=== PATIENT | female | born 1995 | race Caucasian/White ===

== ENCOUNTER 2021-08-21 11:46 | Inpatient (IN) | payer BC ==
[~2021-08-21] VITALS: Ht 175 cm; Wt 115.9 kg
[2021-08-21] VITALS (10 sets, daily range): BP systolic 98–116; BP diastolic 66–89
[2021-08-21] MEDS ORDERED: NS IV 1000 ML 1,000 ML IV STA ×2 (12:49→15:09)
--- NOTE | 2021-08-21 12:55 | ED Chest Pain ---
General Chief Complaint: Cardiac/General Problems Stated Complaint: HIGH HR, L HAND/FINGERS NUMB Nursing Triage Note: pt reports she woke up at 1100 et her apple watch reported that her heart rate was high. 130s-160s. also c/o numbness in left first three fingers. also c/o sore throat Source: patient Exam Limitations: no limitations History of Present Illness Date Seen by Provider: Aug 21, 2021 Time Seen by Provider: 12:51 Initial Comments Patient is a 26-year-old female presents to ED with fast heart rate and tingling and numbness to her first second and third digit. She woke up around 11 AM. She states she checked her apple watch her heart rate was between 130-160. She started developing numbness and tingling into her left hand. She states she has a mild sore throat but thinks that this is related to her left lower molar. She report a few episodes of diarrhea without any fever, headache, cough short of breath, chest pain, abdominal pain. Denies of any stimulant use. She states she did travel to [place] 2 weeks ago. Patient denies of any control use. Denies of any drug use, alcohol use. No confusion, hallucinations, fever, neck pain headache, dizziness, visual changes. History of fast heart rate in the past but states it typically resolves quickly. Allergies and Home Medications Allergies Coded Allergies: latex (Verified Allergy, Unknown, 08/21/21) Patient Home Medication List Home Medication List Reviewed: Yes No Active Prescriptions or Reported Meds Review of Systems Review of Systems Constitutional: No chills, No diaphoresis, No malaise, No weakness EENTM: No Blurred Vision, No Double Vision, No Eye Pain Respiratory: Denies Cough, Denies Orthopnea, Denies Shortness of Air, Denies SOA With Exertion Cardiovascular: Denies Chest Pain, Denies Edema, Denies Irregular Heart Rate; Palpitations Gastrointestinal: Denies Abdominal Pain; Diarrhea; Denies Nausea, Denies Vomiting Genitourinary: Denies Burning, Denies Discharge Musculoskeletal: No back pain, No joint pain, No joint swelling, No muscle pain, No muscle stiffness Skin: No change in color, No change in hair/nails Psychiatric/Neurological: Denies Anxiety, Denies Depressed, Denies Headache; Numbness, Paresthesia Endocrine: Denies Flushing All Other Systems Reviewed Negative Unless Noted: Yes Past Noncgsr-Guuufg-Qucfrg Hx Past Medical History Last Menstrual Period: Jul 30, 2021 Physical Exam Vital Signs Vital Signs - First Documented 08/21/21 12:42 Temp 37.5 Pulse 141 Resp 16 B/P (MAP) 119/55 (76) Pulse Ox 97 O2 Delivery Room Air Capillary Refill : Less Than 3 Seconds Height, Weight, BMI Height: '" Weight: lbs. oz. kg; 37.00 BMI Method: General Appearance: No Apparent Distress, WD/WN HEENT: PERRL/EOMI, TMs Normal, Normal ENT Inspection, Pharynx Normal Neck: Full Range of Motion, Normal Inspection, Non Tender, Supple Respiratory: Chest Non Tender, Lungs Clear, Normal Breath Sounds, No Accessory Muscle Use Cardiovascular: No Edema, No Gallop, No JVD, No Murmur, Tachycardia Gastrointestinal: Normal Bowel Sounds, No Organomegaly, No Pulsatile Mass Extremity: Normal Capillary Refill, Normal Inspection, Normal Range of Motion Neurologic/Psychiatric: Alert, Oriented x3, No Motor/Sensory Deficits, Normal Mood/Affect Skin: Normal Color, Warm/Dry Progress/Results/Core Measures Results/Orders Lab Results Laboratory Tests Test 08/21/21 13:00 08/21/21 13:07 Range/Units White Blood Count 10.3 4.3-11.0 10^3/uL Red Blood Count 4.76 3.80-5.11 10^6/uL Hemoglobin 14.6 11.5-16.0 g/dL Hematocrit 43 35-52 % Mean Corpuscular Volume 91 80-99 fL Mean Corpuscular Hemoglobin 31 25-34 pg Mean Corpuscular Hemoglobin Concent 34 32-36 g/dL Red Cell Distribution Width 12.1 10.0-14.5 % Platelet Count 218 130-400 10^3/uL Mean Platelet Volume 10.6 9.0-12.2 fL Immature Granulocyte % (Auto) 0 % Neutrophils (%) (Auto) 69 42-75 % Lymphocytes (%) (Auto) 16 12-44 % Monocytes (%) (Auto) 14 H 0-12 % Eosinophils (%) (Auto) 0 0-10 % Basophils (%) (Auto) 1 0-10 % Neutrophils # (Auto) 7.1 1.8-7.8 10^3/uL Lymphocytes # (Auto) 1.7 1.0-4.0 10^3/uL Monocytes # (Auto) 1.4 H 0.0-1.0 10^3/uL Eosinophils # (Auto) 0.0 0.0-0.3 10^3/uL Basophils # (Auto) 0.1 0.0-0.1 10^3/uL Immature Granulocyte # (Auto) 0.0 0.0-0.1 10^3/uL Prothrombin Time 13.4 12.2-14.7 SEC INR Comment 1.0 0.8-1.4 Activated Partial Thromboplast Time 32 24-35 SEC D-Dimer 0.95 H 0.00-0.49 UG/ML Sodium Level 138 135-145 MMOL/L Potassium Level 3.7 3.6-5.0 MMOL/L Chloride Level 104 98-107 MMOL/L Carbon Dioxide Level 22 21-32 MMOL/L Anion Gap 12 5-14 MMOL/L Blood Urea Nitrogen 4 L 7-18 MG/DL Creatinine 0.85 0.60-1.30 MG/DL Estimat Glomerular Filtration Rate 97 BUN/Creatinine Ratio 5 Glucose Level 94 70-105 MG/DL Calcium Level 9.2 8.5-10.1 MG/DL Corrected Calcium 9.0 8.5-10.1 MG/DL Magnesium Level 1.8 1.6-2.4 MG/DL Total Bilirubin 0.4 0.1-1.0 MG/DL Aspartate Amino Transf (AST/SGOT) 24 5-34 U/L Alanine Aminotransferase (ALT/SGPT) 31 0-55 U/L Alkaline Phosphatase 86 40-136 U/L Myoglobin 20.7 10.0-92.0 NG/ML Troponin I < 0.028 <0.028 NG/ML B-Type Natriuretic Peptide 20.0 <100.0 PG/ML Total Protein 7.6 6.4-8.2 GM/DL Albumin 4.3 3.2-4.5 GM/DL Lipase 16 8-78 U/L Thyroid Stimulating Hormone (TSH) 1.67 0.35-4.94 UIU/ML Urine Color YELLOW Urine Clarity SL CLOUDY Urine pH 6.0 5-9 Urine Specific [place] 1.025 H 1.016-1.022 Urine Protein NEGATIVE NEGATIVE Urine Glucose (UA) NEGATIVE NEGATIVE Urine Ketones NEGATIVE NEGATIVE Urine Nitrite NEGATIVE NEGATIVE Urine Bilirubin NEGATIVE NEGATIVE Urine Urobilinogen 1.0 < = 1.0 MG/DL Urine Leukocyte Esterase 3+ H NEGATIVE Urine RBC (Auto) NEGATIVE NEGATIVE Urine RBC NONE /HPF Urine WBC 5-10 H /HPF Urine Squamous Epithelial Cells 5-10 /HPF Urine Renal Epithelial Cells NONE /HPF Urine Crystals NONE /LPF Urine Bacteria FEW H /HPF Urine Casts NONE /LPF Urine Mucus SMALL H /LPF Urine Culture Indicated YES Urine Test NEGATIVE NEGATIVE Urine Opiates Screen NEGATIVE NEGATIVE Urine Oxycodone Screen NEGATIVE NEGATIVE Urine Methadone Screen NEGATIVE NEGATIVE Urine Propoxyphene Screen NEGATIVE NEGATIVE Urine Barbiturates Screen NEGATIVE NEGATIVE Ur Tricyclic Antidepressants Screen NEGATIVE NEGATIVE Urine Phencyclidine Screen NEGATIVE NEGATIVE Urine Amphetamines Screen NEGATIVE NEGATIVE Urine Methamphetamines Screen NEGATIVE NEGATIVE Urine Benzodiazepines Screen NEGATIVE NEGATIVE Urine Cocaine Screen NEGATIVE NEGATIVE Urine Cannabinoids Screen NEGATIVE NEGATIVE My Orders Orders - SARAH ISLAS PA Cbc With Automated Diff (08/21/21 12:47) Magnesium (08/21/21 12:47) Chest 1 View, Ap/Pa Only (08/21/21 12:47) Ekg Tracing (08/21/21 12:47) Comprehensive Metabolic Panel (08/21/21 12:47) Myoglobin Serum (08/21/21 12:47) Protime With Inr (08/21/21 12:47) Partial Thromboplastin Time (08/21/21 12:47) Monitor-Rhythm Ecg Trace Only (08/21/21 12:47) Lipid Panel (08/22/21 06:00) Ed Iv/Invasive Line Start (08/21/21 12:47) Lipase (08/21/21 12:47) Bnp Willis (08/21/21 12:47) Fibrin Degradation Products (08/21/21 12:47) Troponin I Willis (08/21/21 12:47) Aspirin Chewable Tablet (Baby Aspirin Ch (08/21/21 13:00) Thyroid Stimulating Hormone (08/21/21 12:47) Ua Culture If Indicated (08/21/21 12:47) Hcg,Qualitative Urine (08/21/21 12:47) Ns Iv 1000 Ml (Sodium Chloride 0.9%) (08/21/21 12:49) Urine Culture (08/21/21 13:07) Ct Angio Chest W (08/21/21 13:25) Iohexol Injection (Omnipaque 350 Mg/Ml 1 (08/21/21 13:45) Received Contrast (Hold Metformin- Contr (08/21/21 13:45) Sodium Chloride Flush (Catheter Flush Sy (08/21/21 13:45) Ns (Ivpb) (Sodium Chloride 0.9% Ivpb Bag (08/21/21 13:45) Drug Screen Stat (Urine) (08/21/21 15:03) Ns Iv 1000 Ml (Sodium Chloride 0.9%) (08/21/21 15:09) Rapid Strep A Screen (08/21/21 15:09) Covid 19 Inhouse Test (08/21/21 15:09) Influenza A And B By Pcr (08/21/21 15:09) Ceftriaxone 1 Gm Pre-Mix (Rocephin 1 Gm (08/21/21 15:09) Ed Admission (Communication) (08/21/21 15:11) Medications Given in ED Current Medications Medications Dose Ordered Sig/Odalis Route Start Time Stop Time Status Last Admin Dose Admin Aspirin 324 mg ONCE ONCE PO 08/21/21 13:00 08/21/21 13:01 DC 08/21/21 13:09 324 MG Iohexol 100 ml ONCE ONCE IV 08/21/21 13:45 08/21/21 13:46 DC 08/21/21 14:32 100 ML Sodium Chloride 10 ml NEEDED PRN IV 08/21/21 13:45 08/21/21 14:32 10 ML Sodium Chloride 100 ml ONCE ONCE IV 08/21/21 13:45 08/21/21 13:46 DC 08/21/21 14:32 80 ML Vital Signs/I&O 08/21/21 12:42 Temp 37.5 Pulse 141 Resp 16 B/P (MAP) 119/55 (76) Pulse Ox 97 O2 Delivery Room Air Blood Pressure Mean: 76 Comment Sinus tachycardia, 146 bpm, QRS duration 78 MS, QTc 410 MS. Departure Communication (Admissions) Time/Spoke to Admitting Phy: 15:15 Patient cardiac work-up unremarkable. Patient remained tachycardic around 110 to 112 bpm. She still having some numbness and tingling of her hand. Did discuss patient with Dr. Miranda cardiology recommend admission for further evaluation of the tachycardia. Patient will be admitted to Dr. Carrillo. Recommend another liter fluid. Swab for COVID influenza and strep. She has no meningeal signs, headache, vomiting, current chest pain or shortness of breath. Lab work was reassuring. Normal TSH. Drug screen pending. She does drink some caffeine and energy drinks but denies of any excessive consumption over the past 24 hours. Denies of any drug use or alcohol use currently. Patient will be admitted for observation at stepdown. Recommend Rocephin for possible UTI Admission for unexplained tachycardia. Impression Primary Impression: Sinus tachycardia Additional Impression: UTI (urinary tract infection) Disposition: ADMITTED INPATIENT Condition: Stable Admissions Decision to Admit Reason: Admit from ER (General) Decision to Admit/Date: Aug 21, 2021 Time/Decision to Admit Time: 15:15 Departure-Patient Inst. Referrals: NO,LOCAL PHYSICIAN (PCP/Family) Primary Care Physician Scripts No Active Prescriptions or Reported Meds SARAH ISLAS Aug 21, 2021 12:55
[2021-08-21] MEDS ORDERED: ASPIRIN 81 MG CHEW (CHILDREN'S ASA) PO ONE (13:00)
--- NOTE | 2021-08-21 13:08 | Diagnostic Imaging Report ---
INDICATION: Chest pain. COMPARISON: None available. TECHNIQUE: Single radiograph of the chest dated 08/21/2021. FINDINGS: The cardiac silhouette is within normal limits in size. No significant pulmonary vascular congestion. The lungs are clear of focal pulmonary opacity. No pleural effusion. No pneumothorax. No acute osseous abnormality. IMPRESSION: No acute cardiopulmonary abnormality. Dictated by: Dictated on workstation # [id number]
[2021-08-21 13:09] LABS: BASOPHILS # (AUTO) 0.1 10^3/uL (0.0-0.1); BASOPHILS % (AUTO) 1 % (0-10); EOSINOPHILS % (AUTO) 0 % (0-10); HEMATOCRIT 43 % (35-52); HEMOGLOBIN 14.6 g/dL (11.5-16.0); LYMPHOCYTES # (AUTO) 1.7 10^3/uL (1.0-4.0); LYMPHOCYTES % (AUTO) 16 % (12-44); MEAN CORPUSCULAR HEMOGLOBIN 31 pg (25-34); MEAN CORPUSCULAR HGB CONC 34 g/dL (32-36); MEAN CORPUSCULAR VOLUME 91 fL (80-99); MEAN PLATELET VOLUME 10.6 fL (9.0-12.2); MONOCYTES # (AUTO) 1.4 10^3/uL (0.0-1.0); MONOCYTES % (AUTO) 14 % (0-12); NEUTROPHILS # (AUTO) 7.1 10^3/uL (1.8-7.8); NEUTROPHILS % (AUTO) 69 % (42-75); PLATELET COUNT 218 10^3/uL (130-400); WHITE BLOOD COUNT 10.3 10^3/uL (4.3-11.0)
[2021-08-21 13:12] LABS: BILIRUBIN,URINE NEGATIVE (NEGATIVE); CLARITY,URINE SL CLOUDY; COLOR,URINE YELLOW; GLUCOSE, URINE (UA) NEGATIVE (NEGATIVE); KETONES,URINE NEGATIVE (NEGATIVE); LEUKOCYTE ESTERASE ,URINE 3+ (NEGATIVE); NITRITE,URINE NEGATIVE (NEGATIVE); PROTEIN,URINE NEGATIVE (NEGATIVE)
[2021-08-21 13:20] LABS: BACTERIA,URINE FEW /HPF
[2021-08-21 13:21] LABS: ALBUMIN 4.3 GM/DL (3.2-4.5); POTASSIUM 3.7 MMOL/L (3.6-5.0); PROTHROMBIN TIME PATIENT 13.4 SEC (12.2-14.7)
[2021-08-21 13:22] LABS: CALCIUM 9.2 MG/DL (8.5-10.1)
[2021-08-21 13:23] LABS: TOTAL PROTEIN 7.6 GM/DL (6.4-8.2)
[2021-08-21 13:25] LABS: BILIRUBIN,TOTAL 0.4 MG/DL (0.1-1.0)
[2021-08-21 13:27] LABS: CREATININE SERUM 0.85 MG/DL (0.60-1.30)
[2021-08-21 13:30] LABS: MAGNESIUM 1.8 MG/DL (1.6-2.4)
[2021-08-21] MEDS ORDERED: IOHEXOL 350 MG/ML 100 ML (OMNIPAQUE 350) VIAL IV ONE (13:45)
[2021-08-21] MEDS ORDERED: NS 100 ML (IVPB) BAG IV ONE (13:45)
[2021-08-21] MEDS ORDERED: HOLD METFORMIN - RECEIVED CONTRAST 20 ML VIAL IV SCH (13:45)
[2021-08-21] MEDS ORDERED: CATHETER FLUSH 10 ML SYR IV PRN (13:45)
--- NOTE | 2021-08-21 14:50 | Diagnostic Imaging Report ---
PROCEDURE: CT angiography of the chest with contrast. TECHNIQUE: Multiple contiguous axial images were obtained through the chest after uneventful bolus administration of intravenous contrast. 3D reconstructed CTA MIP acquisitions were also performed. Auto Exposure Controls were utilized during the CT exam to meet ALARA standards for radiation dose reduction. INDICATION: Elevated heart rate as well as numbness in left fingers. COMPARISON: No prior studies are available for comparison. FINDINGS: Evaluation of the pulmonary arterial system is without evidence of thromboembolism. No filling defects are seen within central, lobar, or segmental branches. Thoracic aorta is normal in caliber. There is no dissection. There is no pericardial or pleural fluid identified. No pulmonary infiltrates, nodules, or masses are detected. Upper abdomen is unremarkable. IMPRESSION: Unremarkable CT angiogram of the chest. There is no evidence of pulmonary embolism or acute aortic disease. Dictated by: Dictated on workstation # [id number]
[2021-08-21] MEDS ORDERED: cefTRIAXone 1 GM PRE-MIX 50 ML IV STA (15:09)
[2021-08-21] MEDS ORDERED: NS IV 1000 ML 1,000 ML IV SCH (15:15)
[2021-08-21 15:19] LABS: AMPHETAMINE SCREEN, URINE NEGATIVE (NEGATIVE); BENZODIAZEPINES SCREEN URINE NEGATIVE (NEGATIVE); CANNABINOID SCREEN, URINE NEGATIVE (NEGATIVE); COCAINE SCREEN URINE NEGATIVE (NEGATIVE); METHAMPHETAMINE SCREEN URINE S NEGATIVE (NEGATIVE); OPIATE SCREEN URINE NEGATIVE (NEGATIVE)
[2021-08-21 15:20] LABS: BARBITURATE SCREEN URINE NEGATIVE (NEGATIVE); METHADONE STAT NEGATIVE (NEGATIVE); OXYCODONE STAT NEGATIVE (NEGATIVE); PROPOXYPHENE STAT NEGATIVE (NEGATIVE); TRICYCLIC ANTIDEPRESSANTS SCRE NEGATIVE (NEGATIVE)
[2021-08-21] MEDS ORDERED: ONDANSETRON 4 MG/2 ML (SDV) Z0FRAN IV PRN (16:15)
[2021-08-21] MEDS ORDERED: ACETAMINOPHEN 325 MG TABLET PO PRN (16:15)
[2021-08-21] MEDS ORDERED: ANTACID SUSP 30 ML UDC (MYLANTA) PO PRN (16:15)
[2021-08-21] MEDS ORDERED: PATIENT MAY USE OWN MEDS, ALL PO SCH (16:15)
[2021-08-21] MEDS ORDERED: polyethylene glycoL POWDER 17 GM (MIRALAX) PACK PO PRN (16:15)
[2021-08-21] MEDS ORDERED: MELATONIN 3 MG TABLET PO PRN (16:15)
[2021-08-21] MEDS ORDERED: ONDANSETRON 4 MG (ZOFRAN) ORAL DISSOLVE TAB PO PRN (16:15)
[2021-08-21] MEDS ORDERED: diphenhydrAMINE 25 MG TAB (BENADRYL) PO PRN (16:15)
--- NOTE | 2021-08-21 16:18 | Consultation-Cardiology ---
HPI-Cardiology Cardiology Consultation: Date of Consultation 08/21/21 Time Seen by a Provider: 16:10 Date of Admission 08-21-21 Attending Physician Margaret Carrillo MD Admitting Physician No,Local Physician Consulting Physician Jean Miranda MD HPI: Chief Complaint: Tachycardia Ms. Price is a 26 yr old female being admitted to [facility] from the ED. She reports she woke up this morning and was in bed watching videos on her phone. She reports her Apple watch alerted her to a high HR of 140. She reports she did not feel her HR was elevated. She reports she got up and went to the BR at which time her HR went up to 160 beats. She reports she decided to come to the ED. She reports walking from her house outside to the car her HR went up to 180 bpm. She denies any palpitations, dizziness, SOB, syncope or near syncope. No c/o LE swelling. She reports she has had some diarrhea a few days ago. She reports she feels as though "she's coming down with something" d/t a co-worker being ill recently. No report of fever or chills. No report of cough. She denies any street drug usage. Only occ ETOH usage (none recently). She quit smoking 2 yrs ago. She takes no medications. Review of Systems-Cardiology Review of Systems Constitutional: No chills, No fever; lightheadedness (occ, with position ayala ges); No malaise Eyes: No tunnel vision Ears/Nose/Throat: No epistaxis, No recent hearing loss Respiratory: As described under HPI Cardiovascular: As described under HPI Gastrointestinal: As described under HPI Genitourinary: No dysuria, No hematuria Musculoskeletal: joint pain (chronic right knee pain) Skin: No rash on exposed areas, No ulcerations on exposed areas Psychiatric/Neurological: anxiety, depression; No seizure, No focal weakness Hematologic: No bleeding abnormalities All Other Systems Reviewed Negative Unless Noted: Yes EGY-Vjyafp-Ovlmtt Hx Patient Social History Have you traveled recently?: No Where was recent travel?: [place] 2 weeks ago Alcohol Use?: No Pt feels they are or have been: No Past Medical History PMH As described under Assessment. Family Medical History Family Medical History: She does not report any family h/o CAD or SCD. Allergies and Home Medications Allergies Coded Allergies: latex (Verified Allergy, Unknown, 08/21/21) Patient Home Medication List No Active Prescriptions or Reported Meds Physical Exam-Cardiology Physical Exam Vital Signs/I&O 08/22/21 08/22/21 08/22/21 08/22/21 00:00 00:47 04:00 07:00 Pulse 104 110 108 87 Resp 31 24 B/P (MAP) 122/64 (83) 100/70 (80) Pulse Ox 96 94 O2 Delivery Room Air Room Air 08/22/21 08/22/21 08:25 08:30 Pulse 102 Resp 20 B/P (MAP) 102/69 (80) Pulse Ox 98 O2 Delivery Room Air Room Air 08/22/21 00:00 Intake Total 1580 ml Balance 1580 ml Capillary Refill : Less Than 3 Seconds Constitutional: AAO x 3, well-developed, well-nourished HEENT: PERRL, hearing is well preserved, oral hygience is good Neck: No carotid bruit; carotid pulses are 2 + bilaterally Respiratory: No accessory muscle use, No respiratory distress; chest expansion is symmetric, chest is bilaterally symmetric, lungs clear to auscultation Cardiovascular: tachycardia (105) Gastrointestinal: No tender; soft, round, audible bowel sounds Extremities: no lower extremity edema bilateral Neurologic/Psychiatric: grossly intact (moves all extremities) Skin: No rash on exposed areas, No ulcerations on exposed areas Data Review Labs Laboratory Tests 08/21/21 13:00: White Blood Count 10.3, Red Blood Count 4.76, Hemoglobin 14.6, Hematocrit 43, Mean Corpuscular Volume 91, Mean Corpuscular Hemoglobin 31, Mean Corpuscular Hemoglobin Concent 34, Red Cell Distribution Width 12.1, Platelet Count 218, Mean Platelet Volume 10.6, Immature Granulocyte % (Auto) 0, Neutrophils (%) (Auto) 69, Lymphocytes (%) (Auto) 16, Monocytes (%) (Auto) 14H, Eosinophils (%) (Auto) 0, Basophils (%) (Auto) 1, Neutrophils # (Auto) 7.1, Lymphocytes # (Auto) 1.7, Monocytes # (Auto) 1.4H, Eosinophils # (Auto) 0.0, Basophils # (Auto) 0.1, Immature Granulocyte # (Auto) 0.0, Prothrombin Time 13.4, INR Comment 1.0, Activated Partial Thromboplast Time 32, D-Dimer 0.95H, Sodium Level 138, Potassium Level 3.7, Chloride Level 104, Carbon Dioxide Level 22, Anion Gap 12, Blood Urea Nitrogen 4L, Creatinine 0.85, Estimat Glomerular Filtration Rate 97, BUN/Creatinine Ratio 5, Glucose Level 94, Calcium Level 9.2, Corrected Calcium 9.0, Magnesium Level 1.8, Total Bilirubin 0.4, Aspartate Amino Transf (AST/SGOT) 24, Alanine Aminotransferase (ALT/SGPT) 31, Alkaline Phosphatase 86, Myoglobin 20.7, Troponin I < 0.028, B-Type Natriuretic Peptide 20.0, Total Protein 7.6, Albumin 4.3, Lipase 16, Thyroid Stimulating Hormone (TSH) 1.67 08/21/21 13:07: Urine Color YELLOW, Urine Clarity SL CLOUDY, Urine pH 6.0, Urine Specific [place] 1.025H, Urine Protein NEGATIVE, Urine Glucose (UA) NEGATIVE, Urine Ketones NEGATIVE, Urine Nitrite NEGATIVE, Urine Bilirubin NEGATIVE, Urine Urobilinogen 1.0, Urine Leukocyte Esterase 3+H, Urine RBC (Auto) NEGATIVE, Urine RBC NONE, Urine WBC 5-10H, Urine Squamous Epithelial Cells 5-10, Urine Renal Epithelial Cells NONE, Urine Crystals NONE, Urine Bacteria FEWH, Urine Casts NONE, Urine Mucus SMALLH, Urine Culture Indicated YES, Urine Test NEGATIVE, Urine Opiates Screen NEGATIVE, Urine Oxycodone Screen NEGATIVE, Urine Methadone Screen NEGATIVE, Urine Propoxyphene Screen NEGATIVE, Urine Barbiturates Screen NEGATIVE, Ur Tricyclic Antidepressants Screen NEGATIVE, Urine Phencyclidine Screen NEGATIVE, Urine Amphetamines Screen NEGATIVE, Urine Methamphetamines Screen NEGATIVE, Urine Benzodiazepines Screen NEGATIVE, Urine Cocaine Screen NEGATIVE, Urine Cannabinoids Screen NEGATIVE 08/21/21 15:23: Influenza Type A (RT-PCR) Not Detected, Influenza Type B (RT-PCR) Not Detected, SARS-CoV-2 RNA (RT-PCR) Not Detected 08/22/21 05:00: Sodium Level 137, Potassium Level 3.4L, Chloride Level 108H, Carbon Dioxide Level 17L, Anion Gap 12, Blood Urea Nitrogen 5L, Creatinine 0.72, Estimat Glomerular Filtration Rate 119, BUN/Creatinine Ratio 7, Glucose Level 95, Calcium Level 8.3L, Triglycerides Level 56, Cholesterol Level 156, LDL Cholesterol Direct 110, VLDL Cholesterol 11, HDL Cholesterol 35L Radiology NAME: WIL PRICE REC#: [id number] PT STATUS: REG ER : 1995 PHYSICIAN: SARAH ISLAS ADMIT DATE: 08/21/21/ER Signed Date of Exam:08/21/21 CHEST 1 VIEW, AP/PA ONLY INDICATION: Chest pain. COMPARISON: None available. TECHNIQUE: Single radiograph of the chest dated 08/21/2021. FINDINGS: The cardiac silhouette is within normal limits in size. No significant pulmonary vascular congestion. The lungs are clear of focal pulmonary opacity. No pleural effusion. No pneumothorax. No acute osseous abnormality. IMPRESSION: No acute cardiopulmonary abnormality. Dictated by: Dictated on workstation # [id number] Dict: 08/21/21 1305 Trans: 08/21/21 1401 [id number] Interpreted by: CARMEN HOFF MD Electronically signed by: CARMEN HOFF MD 08/21/21 1401 NAME: WIL PRICE [facility] REC#: [id number] PT STATUS: ADM IN : 1995 PHYSICIAN: SARAH ISLAS ADMIT DATE: 08/21/21/CSD Signed Date of Exam:08/21/21 CT ANGIO CHEST W PROCEDURE: CT angiography of the chest with contrast. TECHNIQUE: Multiple contiguous axial images were obtained through the chest after uneventful bolus administration of intravenous contrast. 3D reconstructed CTA MIP acquisitions were also performed. Auto Exposure Controls were utilized during the CT exam to meet ALARA standards for radiation dose reduction. INDICATION: Elevated heart rate as well as numbness in left fingers. COMPARISON: No prior studies are available for comparison. FINDINGS: Evaluation of the pulmonary arterial system is without evidence of thromboembolism. No filling defects are seen within central, lobar, or segmental branches. Thoracic aorta is normal in caliber. There is no dissection. There is no pericardial or pleural fluid identified. No pulmonary infiltrates, nodules, or masses are detected. Upper abdomen is unremarkable. IMPRESSION: Unremarkable CT angiogram of the chest. There is no evidence of pulmonary embolism or acute aortic disease. Dictated by: Dictated on workstation # [id number] Dict: 08/21/21 1439 Trans: 08/21/21 1557 [id number] Interpreted by: TINO DAVIS MD Electronically signed by: TINO DAVIS MD 08/21/21 1557 A/P-Cardiology Assessment/Admission Diagnosis Sinus tachycardia - undetermined etiology - TSH WNL on 08-21-21 UTI - management per medical services Anxiety/Depression Previous h/o tobaccoism - quit 2 yrs ago Urine test neg on 08-21-21 Discussion and Recomendations Sinus tachycardia - improving - undetermined etiology - possible secondary to infection d/t UTI - continue on tele - continue IVF - Echocardiogram to eval structure and function Monitor lab closely Replace electrolytes as indicated Management of UTI is with medical services Further recs will be based on her hospital course We would like to thank medical services for this consult JAIME EARL Aug 21, 2021 16:18
[2021-08-21] MEDS: NS IV 1000 ML 1,000 ML IV SCH (16:31)
--- NOTE | 2021-08-21 17:16 | Consultation-Cardiology ---
HPI-Cardiology Cardiology Consultation: Date of Consultation 08/21/21 Time Seen by a Provider: 17:00 Date of Admission Attending Physician Margaret Carrillo MD Admitting Physician No,Local Physician Consulting Physician PETE BEAVERS MD, MA, FACP, FAC, [facility] HPI: Chief Complaint: Tachycardia Ms. Urbano is a 26 yr old female being admitted to [facility] from the ED. She reports she woke up this morning and was in bed watching videos on her phone. She reports her Apple watch alerted her to a high HR of 140. She reports she did not feel her HR was elevated. She reports she got up and went to the BR at which time her HR went up to 160 beats. She reports she decided to come to the ED. She reports walking from her house outside to the car her HR went up to 180 bpm. She denies any palpitations, dizziness, SOB, syncope or near syncope. No c/o LE swelling. She reports she has had some diarrhea a few days ago. She reports she feels as though "she's coming down with something" d/t a co-worker being ill recently. No report of fever or chills. No report of cough. She denies any street drug usage. Only occ ETOH usage (none recently). She quit smoking 2 yrs ago. She takes no medications. Review of Systems-Cardiology Review of Systems Constitutional: No chills, No fever; lightheadedness (occ, with position changes); No malaise Eyes: No tunnel vision Ears/Nose/Throat: No epistaxis, No recent hearing loss Respiratory: As described under HPI Cardiovascular: As described under HPI Gastrointestinal: As described under HPI Genitourinary: No dysuria, No hematuria Musculoskeletal: joint pain (chronic right knee pain) Skin: No rash on exposed areas, No ulcerations on exposed areas Psychiatric/Neurological: anxiety, depression; No seizure, No focal weakness Hematologic: No bleeding abnormalities All Other Systems Reviewed Negative Unless Noted: Yes IOP-[place]-Xcmxot Hx Patient Social History Have you traveled recently?: Yes Where was recent travel?: [place] Alcohol Use?: No Pt feels they are or have been: No Past Medical History PMH As described under Assessment. Family Medical History Family Medical History: She does not report any family h/o CAD or SCD. Allergies and Home Medications Allergies Coded Allergies: latex (Verified Allergy, Unknown, 08/21/21) Patient Home Medication List Home Medication List Reviewed: Yes No Active Prescriptions or Reported Meds Physical Exam-Cardiology Physical Exam Vital Signs/I&O 08/21/21 08/21/21 08/21/21 08/21/21 12:42 16:08 16:39 16:44 Temp 37.5 Pulse 141 105 102 Resp 16 13 B/P (MAP) 119/55 (76) 114/79 Pulse Ox 97 99 O2 Delivery Room Air Room Air Room Air Capillary Refill : Less Than 3 Seconds Constitutional: AAO x 3, well-developed, well-nourished HEENT: PERRL, hearing is well preserved, oral hygience is good Neck: No carotid bruit; carotid pulses are 2 + bilaterally Respiratory: No accessory muscle use, No respiratory distress; chest expansion is symmetric, chest is bilaterally symmetric, lungs clear to auscultation Cardiovascular: tachycardia (105) Gastrointestinal: No tender; soft, round, audible bowel sounds Extremities: no lower extremity edema bilateral Neurologic/Psychiatric: grossly intact (moves all extremities) Skin: No rash on exposed areas, No ulcerations on exposed areas Data Review Labs Laboratory Tests 08/21/21 13:00: White Blood Count 10.3, Red Blood Count 4.76, Hemoglobin 14.6, Hematocrit 43, Mean Corpuscular Volume 91, Mean Corpuscular Hemoglobin 31, Mean Corpuscular Hemoglobin Concent 34, Red Cell Distribution Width 12.1, Platelet Count 218, Mean Platelet Volume 10.6, Immature Granulocyte % (Auto) 0, Neutrophils (%) (Auto) 69, Lymphocytes (%) (Auto) 16, Monocytes (%) (Auto) 14H, Eosinophils (%) (Auto) 0, Basophils (%) (Auto) 1, Neutrophils # (Auto) 7.1, Lymphocytes # (Auto) 1.7, Monocytes # (Auto) 1.4H, Eosinophils # (Auto) 0.0, Basophils # (Auto) 0.1, Immature Granulocyte # (Auto) 0.0, Prothrombin Time 13.4, INR Comment 1.0, Activated Partial Thromboplast Time 32, D-Dimer 0.95H, Sodium Level 138, Potassium Level 3.7, Chloride Level 104, Carbon Dioxide Level 22, Anion Gap 12, Blood Urea Nitrogen 4L, Creatinine 0.85, Estimat Glomerular Filtration Rate 97, BUN/Creatinine Ratio 5, Glucose Level 94, Calcium Level 9.2, Corrected Calcium 9.0, Magnesium Level 1.8, Total Bilirubin 0.4, Aspartate Amino Transf (AST/SGOT) 24, Alanine Aminotransferase (ALT/SGPT) 31, Alkaline Phosphatase 86, Myoglobin 20.7, Troponin I < 0.028, B-Type Natriuretic Peptide 20.0, Total Protein 7.6, Albumin 4.3, Lipase 16, Thyroid Stimulating Hormone (TSH) 1.67 08/21/21 13:07: Urine Color YELLOW, Urine Clarity SL CLOUDY, Urine pH 6.0, Urine Specific [place] 1.025H, Urine Protein NEGATIVE, Urine Glucose (UA) NEGATIVE, Urine Ketones NEGATIVE, Urine Nitrite NEGATIVE, Urine Bilirubin NEGATIVE, Urine Urobilinogen 1.0, Urine Leukocyte Esterase 3+H, Urine RBC (Auto) NEGATIVE, Urine RBC NONE, Urine WBC 5-10H, Urine Squamous Epithelial Cells 5-10, Urine Renal Epithelial Cells NONE, Urine Crystals NONE, Urine Bacteria FEWH, Urine Casts NONE, Urine Mucus SMALLH, Urine Culture Indicated YES, Urine Test NEGATIVE, Urine Opiates Screen NEGATIVE, Urine Oxycodone Screen NEGATIVE, Urine Methadone Screen NEGATIVE, Urine Propoxyphene Screen NEGATIVE, Urine Barbiturates Screen NEGATIVE, Ur Tricyclic Antidepressants Screen NEGATIVE, Urine Phencyclidine Screen NEGATIVE, Urine Amphetamines Screen NEGATIVE, Urine Methamphetamines Screen NEGATIVE, Urine Benzodiazepines Screen NEGATIVE, Urine Cocaine Screen NEGATIVE, Urine Cannabinoids Screen NEGATIVE 08/21/21 15:23: Influenza Type A (RT-PCR) Not Detected, Influenza Type B (RT-PCR) Not Detected, SARS-CoV-2 RNA (RT-PCR) Not Detected A/P-Cardiology Assessment/Admission Diagnosis Sinus tachycardia - undetermined etiology - TSH WNL on 08-21-21 UTI - management per medical services Anxiety/Depression Previous h/o tobaccoism - quit 2 yrs ago Urine test neg on 08-21-21 Discussion and Recomendations Sinus tachycardia - improving - undetermined etiology - possible secondary to infection d/t UTI - continue on tele - continue IVF - Echocardiogram to eval structure and function Monitor lab closely Replace electrolytes as indicated Management of UTI is with medical services Further recs will be based on her hospital course We would like to thank medical services for this consult PETE BEAVERS MD FACP [facility] CCDS Aug 21, 2021 17:16
[2021-08-22] VITALS: BP 122/64
[2021-08-22] MEDS: NS IV 1000 ML 1,000 ML IV SCH ×2 (00:08→08:17)
[2021-08-22 04:00] VITALS: BP 100/70
[2021-08-22 05:26] LABS: POTASSIUM 3.4 MMOL/L (3.6-5.0)
[2021-08-22 05:27] LABS: CALCIUM 8.3 MG/DL (8.5-10.1)
[2021-08-22 05:32] LABS: CREATININE SERUM 0.72 MG/DL (0.60-1.30)
[2021-08-22 08:00] VITALS: BP 104/73
[2021-08-22] MEDS ORDERED: KCL 20 MEQ TAB (K-DUR) PO ONE (08:00)
[2021-08-22 08:25] VITALS: BP 102/69
--- NOTE | 2021-08-22 08:25 | Progress Note - Cardiology ---
Cardiology SOAP Progress Note Objective: I&O/Vital Signs 08/22/21 08/22/21 08/22/21 08/22/21 00:00 00:47 04:00 07:00 Pulse 104 110 108 87 Resp 31 24 B/P (MAP) 122/64 (83) 100/70 (80) Pulse Ox 96 94 O2 Delivery Room Air Room Air 08/22/21 00:00 Intake Total 1580 ml Balance 1580 ml Constitutional: AAO x 3, well-developed, well-nourished Respiratory: No accessory muscle use, No respiratory distress; chest expansion is symmetric, chest is bilaterally symmetric, lungs clear to auscultation Cardiovascular: regular rate-rhythm Gastrointestional: No tender; soft, round, audible bowel sounds Extremities: no lower extremity edema bilateral Neurologic/Psychiatric: grossly intact (moves all extremities) Skin: No rash on exposed areas, No ulcerations on exposed areas Results/Procedures: Labs Laboratory Tests 08/21/21 13:00: White Blood Count 10.3, Red Blood Count 4.76, Hemoglobin 14.6, Hematocrit 43, Mean Corpuscular Volume 91, Mean Corpuscular Hemoglobin 31, Mean Corpuscular Hemoglobin Concent 34, Red Cell Distribution Width 12.1, Platelet Count 218, Mean Platelet Volume 10.6, Immature Granulocyte % (Auto) 0, Neutrophils (%) (Auto) 69, Lymphocytes (%) (Auto) 16, Monocytes (%) (Auto) 14H, Eosinophils (%) (Auto) 0, Basophils (%) (Auto) 1, Neutrophils # (Auto) 7.1, Lymphocytes # (Auto) 1.7, Monocytes # (Auto) 1.4H, Eosinophils # (Auto) 0.0, Basophils # (Auto) 0.1, Immature Granulocyte # (Auto) 0.0, Prothrombin Time 13.4, INR Comment 1.0, Activated Partial Thromboplast Time 32, D-Dimer 0.95H, Sodium Level 138, Potassium Level 3.7, Chloride Level 104, Carbon Dioxide Level 22, Anion Gap 12, Blood Urea Nitrogen 4L, Creatinine 0.85, Estimat Glomerular Filtration Rate 97, BUN/Creatinine Ratio 5, Glucose Level 94, Calcium Level 9.2, Corrected Calcium 9.0, Magnesium Level 1.8, Total Bilirubin 0.4, Aspartate Amino Transf (AST/SGOT) 24, Alanine Aminotransferase (ALT/SGPT) 31, Alkaline Phosphatase 86, Myoglobin 20.7, Troponin I < 0.028, B-Type Natriuretic Peptide 20.0, Total Protein 7.6, Albumin 4.3, Lipase 16, Thyroid Stimulating Hormone (TSH) 1.67 08/21/21 13:07: Urine Color YELLOW, Urine Clarity SL CLOUDY, Urine pH 6.0, Urine Specific [place] 1.025H, Urine Protein NEGATIVE, Urine Glucose (UA) NEGATIVE, Urine Ketones NEGATIVE, Urine Nitrite NEGATIVE, Urine Bilirubin NEGATIVE, Urine U robilinogen 1.0, Urine Leukocyte Esterase 3+H, Urine RBC (Auto) NEGATIVE, Urine RBC NONE, Urine WBC 5-10H, Urine Squamous Epithelial Cells 5-10, Urine Renal Epithelial Cells NONE, Urine Crystals NONE, Urine Bacteria FEWH, Urine Casts NONE, Urine Mucus SMALLH, Urine Culture Indicated YES, Urine Test NEGATIVE, Urine Opiates Screen NEGATIVE, Urine Oxycodone Screen NEGATIVE, Urine Methadone Screen NEGATIVE, Urine Propoxyphene Screen NEGATIVE, Urine Barbiturates Screen NEGATIVE, Ur Tricyclic Antidepressants Screen NEGATIVE, Urine Phencyclidine Screen NEGATIVE, Urine Amphetamines Screen NEGATIVE, Urine Methamphetamines Screen NEGATIVE, Urine Benzodiazepines Screen NEGATIVE, Urine Cocaine Screen NEGATIVE, Urine Cannabinoids Screen NEGATIVE 08/21/21 15:23: Influenza Type A (RT-PCR) Not Detected, Influenza Type B (RT-PCR) Not Detected, SARS-CoV-2 RNA (RT-PCR) Not Detected 08/22/21 05:00: Sodium Level 137, Potassium Level 3.4L, Chloride Level 108H, Carbon Dioxide Level 17L, Anion Gap 12, Blood Urea Nitrogen 5L, Creatinine 0.72, Estimat Glomerular Filtration Rate 119, BUN/Creatinine Ratio 7, Glucose Level 95, Calcium Level 8.3L, Triglycerides Level 56, Cholesterol Level 156, LDL Cholesterol Direct 110, VLDL Cholesterol 11, HDL Cholesterol 35L A/P: Assessment: Sinus tachycardia - undetermined etiology - TSH WNL on 08-21-21 UTI - management per medical services Anxiety/Depression Previous h/o tobaccoism - quit 2 yrs ago Urine test neg on 08-21-21 Plan: Sinus tachycardia - improved - undetermined etiology - possible secondary to infection d/t UTI - continue on tele - continue IVF - Echocardiogram to eval structure and function today Monitor lab closely Replace electrolytes as indicated - received potassium replacement this morning Management of UTI is with medical services JAIME EARL Aug 22, 2021 08:25
[2021-08-22] MEDS ORDERED: cefTRIAXone 1 GM PRE-MIX 50 ML IV SCH (09:00)
[2021-08-22] MEDS ORDERED: IBUP-2473 PO (09:53)
[2021-08-22] MEDS ORDERED: CEFD300C3 PO (10:26)
[2021-08-22 11:32] VITALS: BP 109/75
--- NOTE | 2021-08-22 14:33 | Discharge Summary ---
Discharge Summary Hospital Course Problems/Dx: (1) Dehydration Status: Acute (2) Sinus tachycardia Status: Acute (3) UTI (urinary tract infection) Status: Acute Hospital Course Date of Admission: Aug 21, 2021 at 15:11 Admission Diagnosis : Sinus tachycardia Family Physician/Provider: ClaudiaLocal Physician Date of Discharge: 08/22/21 Discharge Diagnosis: Dehydration, UTI, sinus tachycardia Hospital Course: Naseem Urbano is a 26 year old female who presented with sinus tachycardia. She got a notification from her watch saying her heart rate was high. She had no symptoms. She was admitted for observation. Cardiology was consulted and assisted with her care. She was given IV fluids and her heart rate improved. She had a possible UTI and was given IV Rocephin and then transitioned to oral Om nicef. She was instructed to decrease her caffeine intake. Her echo showed no significant abnormalities. She was discharged home in stable condition. Labs and Pending Lab Test: Laboratory Tests 08/21/21 15:23: Influenza Type A (RT-PCR) Not Detected, Influenza Type B (RT-PCR) Not Detected, SARS-CoV-2 RNA (RT-PCR) Not Detected 08/22/21 05:00: Sodium Level 137, Potassium Level 3.4L, Chloride Level 108H, Carbon Dioxide Level 17L, Anion Gap 12, Blood Urea Nitrogen 5L, Creatinine 0.72, Estimat [place] merular Filtration Rate 119, BUN/Creatinine Ratio 7, Glucose Level 95, Calcium Level 8.3L, Triglycerides Level 56, Cholesterol Level 156, LDL Cholesterol Direct 110, VLDL Cholesterol 11, HDL Cholesterol 35L Microbiology 08/21/21 Urine Culture - Final, Complete Gram Pos Mixed Bacterial Tasha Home Meds Active Cefdinir 300 Mg Capsule 300 Mg PO BID 5 Days Reported Ibuprofen 200 Mg Tablet 400-800 Mg PO Q8H PRN TAKES 2 TO 4 (200MG) TABS Assessment/Pt Instructions See instructions Discharge Planning: <30 minutes discharge planning Discharge Instructions Discharge Diet: No Restrictions Activity as Tolerated: Yes Consultations Cardiology Discharge Physical Examination Vital Signs Vital Signs Date Time Temp Pulse Resp B/P (MAP) Pulse Ox O2 Delivery O2 Flow Rate FiO2 08/22/21 12:34 80 08/22/21 11:32 36.5 18 109/75 (86) 98 Room Air General Appearance: No Apparent Distress, Obese HEENT: PERRL/EOMI, Pharynx Normal Respiratory: Lungs Clear, Normal Breath Sounds, No Respiratory Distress Cardiovascular: Regular Rate, Rhythm, No Edema, No Murmur Gastrointestinal: Normal Bowel Sounds, Non Tender, Soft Extremity: Normal Inspection, Non Tender, No Pedal Edema Skin: Normal Color, Warm/Dry Neurologic/Psychiatric: Alert, No Motor/Sensory Deficits, Normal Mood/Affect Allergies: Coded Allergies: latex (Verified Allergy, Unknown, 08/21/21) squash (Verified Allergy, Unknown, 08/22/21) Discharge Summary Date of Admission Aug 21, 2021 at 15:11 Date of Discharge Discharge Date: Aug 22, 2021 Discharge Time: 14:32 Admission Diagnosis Sinus tachycardia Consults/Procedures Consulations Cardiology Discharge Diagnosis (1) Dehydration Status: Acute (2) Sinus tachycardia Status: Acute (3) UTI (urinary tract infection) Status: Acute MIKKI SUAREZ MD Aug 22, 2021 14:33
--- NOTE | 2021-08-22 15:48 | Progress Note - Cardiology ---
Cardiology SOAP Progress Note Subjective: No cp or palp or syncope or shortness of breath or swelling No n/v/d No weakness or malaise Objective: I&O/Vital Signs 08/22/21 08/22/21 08/22/21 08/22/21 04:00 07:00 08:00 08:00 Temp 36.5 Pulse 108 87 84 Resp 24 7 B/P (MAP) 100/70 (80) 104/73 (83) Pulse Ox 94 98 O2 Delivery Room Air Room Air 08/22/21 08/22/21 08/22/21 08/22/21 08:25 08:30 11:32 12:34 Temp 36.5 Pulse 102 80 Resp 20 18 B/P (MAP) 102/69 (80) 109/75 (86) Pulse Ox 98 98 O2 Delivery Room Air Room Air Room Air 08/22/21 00:00 Intake Total 1580 ml Balance 1580 ml Constitutional: AAO x 3, well-developed, well-nourished Respiratory: No accessory muscle use, No respiratory distress; chest expansion is symmetric, chest is bilaterally symmetric, lungs clear to auscultation Cardiovascular: regular rate-rhythm Gastrointestional: No tender; soft, round, audible bowel sounds Extremities: no lower extremity edema bilateral Neurologic/Psychiatric: grossly intact (moves all extremities) Skin: No rash on exposed areas, No ulcerations on exposed areas Results/Procedures: Labs Laboratory Tests 08/22/21 05:00: Sodium Level 137, Potassium Level 3.4L, Chloride Level 108H, Carbon Dioxide Level 17L, Anion Gap 12, Blood Urea Nitrogen 5L, Creatinine 0.72, Estimat Glomerular Filtration Rate 119, BUN/Creatinine Ratio 7, Glucose Level 95, Calcium Level 8.3L, Triglycerides Level 56, Cholesterol Level 156, LDL Cholesterol Direct 110, VLDL Cholesterol 11, HDL Cholesterol 35L Microbiology 08/21/21 Urine Culture - Final, Complete Gram Pos Mixed Bacterial Tasha Laboratory Tests 08/21/21 13:00 08/22/21 05:00 A/P: Assessment: Sinus tachycardia - undetermined etiology - TSH WNL on 08-21-21 - Echo 08/22/21: LVEF 55-60%, no significant pathology seen UTI - management per medical services Anxiety/Depression Previous h/o tobaccoism - quit 2 yrs ago Urine test neg on 08-21-21 Plan: Sinus tachycardia - improved - undetermined etiology - possible secondary to infection d/t UTI Sinus tachycardia likely due to a non-cardiac issue.Discussed, and advised f/u with pcp Replace electrolytes as indicated - received potassium replacement this morning Management of UTI is with medical services PETE BEAVERS MD FACP [facility]S Aug 22, 2021 15:48
[2021-08-22 16:21] VITALS: BP 109/75
== END 2021-08-22 16:25 | disposition home or self-care (01) | DRG 690 ==
LOC: ER 11:50 → CSD 15:11
PROVIDERS: ADMIT Internal Medicine; ATTEND Internal Medicine
DX: N39.0 Urinary tract infection, site not specified (principal); R00.0 Tachycardia, unspecified; E86.0 Dehydration; Z91.040 Latex allergy status; F41.9 Anxiety disorder, unspecified; F32.A Depression, unspecified; Z87.891 Personal history of nicotine dependence; Z20.822 Contact with and (suspected) exposure to COVID-19
CPT/HCPCS: 36415; 71045; 71275; 80048; 80053; 80061; 80306; 81000; 83690; 83735; 83874; 83880; 84443; 84484; 84703; 85025; 85379; 85610; 85730; 87088; 87636; 93005; 93041; 93306